=== PATIENT | female | born 1995 | race Caucasian/White ===

== ENCOUNTER 2021-04-08 15:39 | Emergency (ER) | payer OTHER ==
[2021-04-08 15:57] VITALS: BP 118/69
--- NOTE | 2021-04-08 16:19 | ED Physician Documentation ---
History of Present Illness - Stated complaint Stated Complaint: COUGH,CONGESTION - Chief complaint Chief Complaint: Resp - History obtained from History obtained from: Patient - Additonal information Additional information: Previously healthy 25-year-old woman has been sick for about 3 days with fever, cough, chills, body aches, and request testing for COVID. She has been vaccinated for COVID. Review of Systems Constitutional: reports: Fever, Chills, Myalgias, Fatigue Nose: reports: Rhinorrhea / runny nose Throat: reports: Sore throat Respiratory: reports: Cough. denies: Dyspnea PD PAST MEDICAL HISTORY - Allergies Allergies/Adverse Reactions: Allergies Allergy/AdvReac Type Severity Reaction Status Date / Time No Known Drug Allergies Allergy Verified 04/08/21 15:57 PD ED PE NORMAL - Vitals Vital signs reviewed: Yes - General General: Alert and oriented X 3, No acute distress - Cardiac Cardiac: RRR, No murmur - Respiratory Respiratory: No respiratory distress, Clear bilaterally - Abdomen Abdomen: Non tender - Neuro Neuro: Alert and oriented X 3, Normal speech Results - Vitals Vitals: Vital Signs - 24 hr 04/08/21 15:53 Temperature 36.4 C L Heart Rate 71 Respiratory 18 Rate Blood Pressure 118/69 O2 Saturation 99 Oxygen O2 Source Room air Departure - Departure Disposition: Home, Self Care Clinical Impression: Viral syndrome Condition: Good Record reviewed to determine appropriate education?: Yes Instructions: ED Viral Syndrome Comments: Ibuprofen as needed for aches and pains, You have a Covid test pending. You need to self quarantine until the result is done and negative. Do not leave your house. Do not get near anybody. The results should be done in 48 to 72 hours. We will call with a positive result, the fastest way to get a negative result for confirmation though is to go to the hospital website at [email or web address], click on the my [email or web address] tab and sign up for the patient portal. If any friends or family get sick and would like to have a Covid test done, but do not have signs or symptoms that would necessitate being hospitalized, there are multiple local options for Covid testing. [facility] keeps an updated list of testing and vaccination options at: [email or web address]. Forms: Activity restrictions
== END 2021-04-08 16:22 | disposition home or self-care (01) ==
LOC: ED 15:39
DX: B34.9 Viral infection, unspecified (principal); Z20.822 Contact with and (suspected) exposure to COVID-19
CPT/HCPCS: 99282; 99283

== ENCOUNTER 2022-11-27 18:22 | Emergency (ER) | payer OTHER ==
--- NOTE | 2022-11-27 18:45 | ED Physician Documentation ---
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 No palpitations. No chest pain. No shortness of breath. No loss of consciousness. Patient is asymptomatic currently. No history of arrhythmia. Denies any possibility of . Review of Systems : denies: Now [place] [facility] PAST MEDICAL HISTORY - Past Medical History Past Medical History: No - Past Surgical History Past Surgical History: No - Present Medications Home Medications: Ambulatory Orders Medication Instructions Recorded Confirmed No Known Home Medications 11/27/22 11/27/22 - Allergies Allergies/Adverse Reactions: Allergies Allergy/AdvReac Type Severity Reaction Status Date / Time No Known Drug Allergies Allergy Verified 11/27/22 18:24 - Social History Does the pt smoke?: No Smoking Status: Never smoker Does the pt drink ETOH?: Yes Does the pt have substance abuse?: No - Immunizations Immunizations are current?: Yes PD ED PE NORMAL - Vitals Vital signs reviewed: Yes - General General: Alert and oriented X 3, No acute distress - HEENT HEENT: Moist mucous membranes - Neck Neck: Supple, no meningeal sign - Cardiac Cardiac: RRR - Respiratory Respiratory: No respiratory distress, Clear bilaterally - Abdomen Abdomen: Soft, Non tender, Non distended - Derm Derm: Warm and dry - Neuro Neuro: Alert and oriented X 3 - Psych Psych: Normal mood, Normal affect Results - Vitals Vitals: Vital Signs - 24 hr 11/27/22 11/27/22 18:24 18:55 Temperature 36.5 C 36.6 C Heart Rate 66 62 Respiratory 16 14 Rate Blood Pressure 118/62 116/60 O2 Saturation 99 98 Oxygen O2 Source Room air - EKG (time done) 1836 EKG releavant findings:: EKG personally interpreted by author of this note. Relevant findings are: Rate: Rate (enter#) (64) Rhythm: NSR [place]: Normal Intervals: Normal [place] QRS: Normal Ischemia: Normal ST segments PD Medical Decision Making - ED course Complexity details: reviewed results, considered differential, d/w patient ED course: 27-year-old female status post Tylenol electrical shock. No emergency medical condition at this time. Normal EKG. Patient counseled regarding signs and symptoms for which I believe and urgent re-evaluation would be necessary. Patient with good understanding of and agreement to plan and is comfortable going home at this time This document was made in part using voice recognition software. While efforts are made to proofread this document, sound alike and grammatical errors may occur. Departure - Departure Disposition: 01 Home, Self Care Clinical Impression: Electrocution and nonfatal effects of electric current Qualifiers: Encounter type: initial encounter Qualified Code(s): T75.4XXA - Electrocution, initial encounter Condition: Good Instructions: ED Burn Electrical Follow-Up: MARSHAL RAMOS MD [Primary Care Provider] - As Needed Comments: Your EKG does not show any acute abnormalities today. Please follow-up with your doctor as needed for further care. Return if you worsen. Forms: PCP List Discharge Date/Time: 11/27/22 18:59
[2022-11-27 18:56] VITALS: BP 116/60; O2SAT 98
== END 2022-11-27 18:59 | disposition home or self-care (01) ==
LOC: ED 18:22
DX: T75.4XXA Electrocution, initial encounter (principal)
CPT/HCPCS: 93005; 99283